=== PATIENT | female | born 1975 | race Caucasian/White ===

== ENCOUNTER 2019-11-26 19:06 | Observation (INO) ==
[2019-11-26 20:01] LABS: Basophils # 0.1 10*3/uL (0.0-0.2); Basophils % 0.4 % (0.0-0.8); Eosinophils % 0.3 % (0.00-10.9); Hematocrit 35.2 VOL% (35.7-47.0); Hemoglobin 12.1 GM/DL (12.0-16.0); Immature Granulocytes % 0.3 %; Immature Granulocytes Absolute 0.03 #; Lymphocytes # 1.5 10*3/uL (1.4-4.0); Mean Corpuscular HGB Conc 34.4 GM/DL (32-36); Mean Corpuscular Volume 98.3 FL (87-102); Mean Platelet Volume 8.8 FL (9.6-12.0); Monocytes % 6.5 % (1.7-12.7); Neutrophils % 79.5 % (38.7-73.9); Platelet Count 165 T/CUMM (130-400); Red Blood Count 3.58 MC/CUMM (3.8-5.5); Red Cell Distribution Width 11.3 % (9.3-17.3); White Blood Count 11.3 T/CUMM (4-12)
[2019-11-26 21:29] LABS: Albumin 3.6 G/DL (3.4-5.0); Bilirubin,Total 0.6 MG/DL (0.2-1.0); Calcium 8.3 MG/DL (8.5-10.1); Osmolality,Calculated 263.4 MOS/KG (273-304)
[2019-11-26] MEDS ORDERED: ONDANSETRON 4 MG/2 ML VIAL IV PRN (23:20)
[2019-11-26] MEDS ORDERED: ACETAMINOPHEN 325 MG TABLET PO PRN (23:20)
[2019-11-26] MEDS ORDERED: ZALEPLON 5 MG CAPSULE PO PRN (23:20)
[2019-11-26] MEDS ORDERED: MAGNESIUM SULF RIDER 2 GM in PREMIX 1 EACH IV PRN (23:28)
[2019-11-26] MEDS ORDERED: MAGNESIUM SULF RIDER 4 GM in PREMIX 1 EACH IV PRN (23:28)
[2019-11-26] MEDS ORDERED: POTASSIUM CHLORIDE 20 MEQ TABLET PO ONE (23:29)
[2019-11-26] MEDS ORDERED: HydrOXYzine PAMOATE 25 MG CAPSULE PO PRN (23:31)
[2019-11-27 08:06] VITALS: BP 136/94
[2019-11-27] MEDS: POTASSIUM CHLORIDE 20 MEQ TABLET PO PRN ×2 (08:42→10:34)
[2019-11-27] MEDS ORDERED: PANTOPRAZOLE 40 MG TABLET PO SCH (09:00)
[2019-11-27 09:53] LABS: Albumin 3.3 G/DL (3.4-5.0); Bilirubin,Total 0.7 MG/DL (0.2-1.0); Calcium 8.3 MG/DL (8.5-10.1); Osmolality,Calculated 266.2 MOS/KG (273-304); Total Protein 7.3 G/DL (6.4-8.3)
[2019-11-27] MEDS ORDERED: POTASSIUM CHLORIDE 20 MEQ/15 ML UDCUP PO ONE (10:35)
== END 2019-11-27 12:30 | disposition home or self-care (01) ==
LOC: EDUNIT# → EDBD → N.ED 19:06 → N.EDINP 19:06 → SUATTDRO 23:20 → N.2W 23:46
PROVIDERS: ADMIT Internal Medicine; ATTEND Family Medicine